=== PATIENT | female | born 1970 ===

== ENCOUNTER 2018-06-22 08:20 | Outpatient (CLI) | payer OTHER | END 2018-06-22 08:28 | disposition home or self-care (01) | LOC: SONOGRAMA 08:20 | DX: E04.2 Nontoxic multinodular goiter (principal) ==

== ENCOUNTER 2020-08-15 13:42 | Emergency (ER) | payer OTHER ==
[~2020-08-15] VITALS: Ht 160 cm; Wt 120.7 kg
[2020-08-15] MEDS ORDERED: COZAAR100 MG (13:56)
[2020-08-15] MEDS ORDERED: FORTAMET500 MG (13:56)
[2020-08-15] MEDS ORDERED: SYNTHROID175 MCG (13:56)
== END 2020-08-15 18:28 | disposition home or self-care (01) ==
LOC: ER 13:42
DX: M54.6 Pain in thoracic spine (principal); M62.830 Muscle spasm of back